=== PATIENT | female | born 1940 | race Caucasian/White ===

== ENCOUNTER 2020-08-10 04:08 | Inpatient (IN) | payer MEDICARE ==
[2020-08-10 04:45] LABS: #Basophils 0.1 thou/uL (0.0-0.2); #Lymphocytes 0.7 thou/uL (1.20-3.40); #Monocytes 0.5 thou/uL (0.11-0.59); #Neutrophils 8.8 thou/uL (1.40-6.50); %Basophils 0.9 % (0.0-1.0); %Eosinophils 0.2 % (0.0-10.0); %Lymphocytes 7.2 % (21.0-51.0); %Neutrophils 86.7 % (42.0-75.0); Hemoglobin 15.8 g/dL (12.0-16.0); Mean Corpuscular HGB CONC 33.6 g/dL (32.0-36.0); Mean Corpuscular Hemoglobin 31.7 pg (27.0-31.0); Mean Corpuscular Volume 94.4 fL (78.0-98.0); Mean Platelet Volume 7.6 fL (7.4-10.4); Platelet Count 346 thou/uL (130-400); RBC Distribution Width 12.4 % (11.5-14.5); White Blood Cell (WBC) Count 10.1 thou/uL (4.8-10.8)
[2020-08-10 05:07] LABS: ALT (SGPT) 28 U/L (8-55); AST (SGOT) 40 U/L (5-34); Albumin 3.6 g/dL (3.4-4.8); Alkaline Phosphatase 284 U/L (40-110); Anion Gap 19 mmol/L (10-20); BUN (Urea Nitrogen) 39 mg/dL (9.8-20.1); Bilirubin, Total 0.5 mg/dL (0.2-1.2); Calc. Creatinine Clearance 0 mL/min (70-130); Calcium 9.6 mg/dL (7.8-10.44); Carbon Dioxide 21 mmol/L (23-31); Chloride 104 mmol/L (98-107); Estimated GFR-MDRD 68; Glucose 141 mg/dL (83-110); Potassium 5.2 mmol/L (3.5-5.1); Protein, Total 6.6 g/dL (6.0-8.3); Sodium 139 mmol/L (136-145)
--- NOTE | 2020-08-10 05:44 | PDOC.FPRHP ---
- History of Present Illness Chief Complaint: shortness of breath History of Present Illness: 79-year-old female, history of COPD and stage IV lung cancer, presenting with shortness of breath from shelter. She reports the shortness of breath starteda couple of days ago is not associated with chest pain, and no worsened cough from baseline. She is typically on 2 L nasal cannula at the shelter, but they reported that she was requiring 6L NC to have saturations 98-99%. She further denies any fevers, abdominal pain, nausea, vomiting, loss of taste/smell, leg swelling. - Allergies/Adverse Reactions Allergies Allergy/AdvReac Type Severity Reaction Status Date / Time No Known Drug Allergies Allergy Verified 12/23/19 11:04 - Home Medications Medication Instructions Recorded Confirmed Type Aspirin [Aspir-Low] 81 mg PO DAILY 05/19/17 08/10/20 History Bimatoprost [Latisse] 1 drop TOP HS 05/19/17 08/10/20 History Citalopram Hydrobromide 20 mg PO DAILY 05/19/17 08/10/20 History [Citalopram HBr] Clopidogrel Bisulfate [Clopidogrel] 75 mg PO DAILY 05/19/17 08/10/20 History Fluticasone Propionate [Flonase 2 spray EA NARE DAILY 05/19/17 08/10/20 History Allergy Relief] Rosuvastatin Calcium 20 mg PO HS 05/19/17 08/10/20 History Levothyroxine Sodium 25 mcg PO DAILY-AC 06/26/20 08/10/20 History Timolol Maleate [Timolol Maleate 1 drop EA EYE BID 07/19/20 08/10/20 History 0.5% Ophth SolN] Amlodipine [Norvasc] 5 mg PO DAILY 08/10/20 08/10/20 History Ipratropium/Albuterol Sulfate 3 ml IH Q4HR PRN 08/10/20 08/10/20 History - History PMHx: COPD, Stage 4 Lung Cancer, Glaucoma, HLD, CAD, HTN, Throat Cancer PSHx: Throat surgery, cataract surgery FHx: none Social: smoked 1.5 ppd x 40 years quitting 20 years ago, no alcohol or drug use - Review of Systems General: denies: fever/chills, weight/appetite/sleep changes Eyes: denies: eye pain, vision changes ENT: denies: nasal congestion, rhinorrhea Respiratory: reports: cough, shortness of breath. denies: congestion Cardiovascular: denies: chest pain, palpitation, edema Gastrointestinal: denies: nausea, vomiting, diarrhea, constipation, abdominal pain Genitourinary: denies: incontinence, dysuria Skin: denies: rashes, lesions Musculoskeletal: denies: pain, tenderness Neurological: denies: numbness, syncope Psychological: reports: anxiety - Vital signs BP: 118/68, MAP: 84, Pulse: 91, Resp: 20, Temp: 98.2 (Oral), Pain: 0, O2 sat: 97 on (4L Oxygen), Wt: 55.9kg - Physical Exam Constitutional: NAD, awake, alert and oriented, other (cachectic) HEENT: normocephalic and atraumatic, EOMI, other (dry mucous membranes) Neck: FROM, trachea midline Heart: RRR, no murmurs/rubs/gallops, pulses present Lungs: no respiratory distress, other (rhonchi and crackles diffusely, worst at the base of the left lung) Abdomen: soft, non-tender, bowel sounds present Musculoskeletal: ROM grossly normal Neurological: no focal deficit, normal sensation Skin: no rash/lesions, no jaundice Heme/Lymphatic: no unusual bruising or bleeding, no purpura Psychiatric: normal mood and affect, good judgment and insight, intact recent and remote memory FMR H&P: Results - Labs Result Diagrams: 08/10/20 04:38 08/10/20 04:38 Lab results: WBC 10.1 thou/uL (4.8-10.8) 08/10/20 04:38 Hgb 15.8 g/dL (12.0-16.0) 08/10/20 04:38 Hct 47.2 % (36.0-47.0) H 08/10/20 04:38 MCV 94.4 fL (78.0-98.0) 08/10/20 04:38 Plt Count 346 thou/uL (130-400) 08/10/20 04:38 Neutrophils % 86.7 % (42.0-75.0) H 08/10/20 04:38 Sodium 139 mmol/L (136-145) 08/10/20 04:38 Potassium 5.2 mmol/L (3.5-5.1) H 08/10/20 04:38 Chloride 104 mmol/L (98-107) 08/10/20 04:38 Carbon Dioxide 21 mmol/L (23-31) L 08/10/20 04:38 BUN 39 mg/dL (9.8-20.1) H 08/10/20 04:38 Creatinine 0.81 mg/dL (0.6-1.1) 08/10/20 04:38 Glucose 141 mg/dL (83-110) H 08/10/20 04:38 Calcium 9.6 mg/dL (7.8-10.44) 08/10/20 04:38 Total Bilirubin 0.5 mg/dL (0.2-1.2) 08/10/20 04:38 AST 40 U/L (5-34) H 08/10/20 04:38 ALT 28 U/L (8-55) 08/10/20 04:38 Alkaline Phosphatase 284 U/L (40-110) H 08/10/20 04:38 Serum Total Protein 6.6 g/dL (6.0-8.3) 08/10/20 04:38 Albumin 3.6 g/dL (3.4-4.8) 08/10/20 04:38 - EKG Interpretation EKG: NSR FMR H&P: A/P - Plan Acute on Chronic Hypoxic Respiratory Failure 2/2 Large Left Pleural Effusion 2/2 Stage IV Adenocarcinoma Lung Cancer CXR Large left-sided Pleural Effusion - therapeutic thoracentesis today likely by our team or IR - patient will likely need stopcock and f/u with CV surg/onc - will schedule lovenox for 2100 today - mIVFs @ 100 - admit tele - continue to monitor respiratory status COPD - likely exacerbating the above - duonebs prn Hyperkalemia - will trend her levels HLD - continue home meds HTN - continue home meds Glaucoma - continue home meds Hypothyroidism - resume home meds Dispo: admit inpatient tele, LOS likely 1-2 days PCP: Susan Code status: DNAR FMR H&P: Upper Level - Plan Date/Time: 08/10/20 0541 IJah DO, have evaluated this patient and agree with findings/plan as outlined by agriculture internship resident. Pertinent changes/additions are listed here. This is an a79 yo female with a pmh Stage IV adenocarcinoma of the lung, recurrent pleural effusion, emphysema, CKD2, HLD, COPD, hx of laryngeal cancer, HTN, hypothyroidism, protein-calorie malnutrition who presents the ER with a cc of SOB. She states this has been progressive over the last 3-4 days and she is now requiring more O2 than her base line of 2L NC. She was recently diagnosed with lung cancer on 06/30/20 when she had a diagnostic thoracentesis. Since that time, she has had an additional therapeutic thoracentesis while awaiting outpt CV surgery appointments with Dr. Helm and oncology appointments with Dr. Rodriguez. On 06/27/20, she had 500ml drained from the left pleural effusion and on 07/21/20, she had 1.1L drained from that same side. Currently, she denies chest pain, fevers, chills, headaches, pressure ulcers, nausea, vomiting, diarrhea, or constipation. She denies current pain. Objective: BP 118/68, HR 91, RR 20, Temp 98.2, SpO2 90% on 2L NC, Wt. 55kg. This is a frail appearing woman with temporalis muscle wasting, mild respiratory distress, mild wheezing on the right lung, significantly diminished breath sounds on the left lung millan with dullness to percussion. Heart is RRR, abdomen is soft, BS+, pulses present in all 4 extremities. Labs significant for potassium of 5.2, alk phos of 284, and AST of 40. Hgb 15.8, CXR shows significant left sided pleural effusion, pending official read. Plan: Stage IV adenocarcinoma of the lung with associated pleural effusion and acute on chronic hypoxic respiratory failure: Will admit to medical and plan on therapeutic thoracentesis either by our team or IR. Pt likely needs a stopcock drain placed as to keep her out of the hospital long enough to follow up with CV surgery and oncology. Hyperkalemia, will trend her levels and treat if elevated. Her COPD is likely exacerbating the above, will add duonebs. Please see agriculture internship note for further information and management of chronic illnesses. Code: DNR Prophylaxis: Lovenox Family: None at bedside FLuids: LR 100ml/hr Diet: Regular Disposition: DC in 1-2 days PCP: Dr. Prihoda Addendum - Attending - Attending Attestation Date/Time: 08/10/20 8212 I personally evaluated the patient and discussed the management with Dr. Arroyo. I agree with the History, Examination, Assessment and Plan documented above with any addition or exceptions noted below - 79-year-old female with h/o COPD, CAD, HTN, HLD and recently diagnosed advanced lung cancer presenting with shortness of breath from shelter. She reports the shortness of breath started a couple of days ago is not associated with chest pain, and no worsened cough from baseline. She is typically on 2 L nasal cannula at the shelter, but they reported that she was requiring 6L NC to have saturations 98-99%. She further denies any fevers, abdominal pain, nausea, vomiting, loss of taste/smell, leg swelling. Has recently been hospitalized at [facility] (late Jun and mid July) for SOB and found to have large pleural effusion. From is fluid diagnosis of lung cancer was made. Has had 2 thoracenteses for recurrent malignant pleural effusion. PMH/PSH/Meds/SH reviewed and agree with resident's documentation. Afebrile VSS Exam repeated by me and agree with resident's findings. Labs: WBC=10.1, Qzb=420, BUN/Cr=39/0.81, CXR- large left sided pleural effusion. A/P: 1) Recurrent malignant effusion - will have IR perform thoracentesis. 2) Advanced lung cancer - patient reports that she saw oncology earlier this week and was told there were really no treatment options and she should consider hospice. Will have palliative care see patient to potential facilitate referral to hospice. 3) HTN- stable. .
[2020-08-10] MEDS ORDERED: Acetaminophen 325 MG TAB PO PRN (05:48)
[2020-08-10] MEDS ORDERED: HYDROcodone/Acetaminophen 5/325 mg Tablet PO PRN ×2 (07:53→07:54)
[2020-08-10] MEDS ORDERED: Ondansetron ODT 4 MG TAB PO PRN (07:53)
[2020-08-10] MEDS ORDERED: Ondansetron PF 4 MG/2 ML Vial IVP PRN (07:53)
[2020-08-10 08:54] VITALS: BMI 18.0
--- NOTE | 2020-08-10 09:11 | RAD ---
RADIOGRAPH CHEST 2 VIEW: DATE: 08/10/2020 TIME: 4:34 AM HISTORY: 79-year-old female with dyspnea COMPARISON: 07/19/2020 FINDINGS: Large left mediastinal mass again noted. Severe emphysematous changes of right lung. There has been i nterval increase in volume of the now large left pleural effusion, which opacifies the entire left lung except for a portion of the left upper lobe. No pneumothorax. No right-sided pleural effusion. IMPRESSION: 1) interval increase in volume of a now very large left pleural effusion. 2.) Severe centrilobular emphysema 3) malignant left sided mediastinal lymphadenopathy tumor mass
[2020-08-10] MEDS: Lactated Ringer's 1,000 ML IV SCH ×2 (09:39→18:18)
[2020-08-10 10:45] LABS: INR-International Normal Ratio 1.2; PTT 29.6 sec (22.9-36.1); Prothrombin Time 15.2 sec (12.0-14.7)
[2020-08-10] MEDS: Albuterol Sulfate 2.5 mg/3 ml Neb NEB PRN (13:01)
[2020-08-10] MEDS ORDERED: Amiodarone 450 MG, Admixture Fee 1 EACH in Dextrose 5% in Water 250 ML IVPB SCH (17:00)
[2020-08-10] MEDS ORDERED: Amiodarone 150 MG, Admixture Fee 1 EACH in Dextrose 5% in Water 100 ML IVPB SCH (17:00)
[2020-08-10] MEDS ORDERED: Diltiazem 125 MG in Sodium Chloride 0.9% 100 ML IVPB SCH ×2 (17:00→18:45)
--- NOTE | 2020-08-10 17:04 | PDOC.BPN ---
- Brief Progress Note Encounter Date: 08/10/20 Encounter Time: 17:00 Christina wade was called around 4 PM for pulse that was up to the 200s. At bedside, patient O2 sats were >90%. SBP was 110s, dropped to 80s on automatic cuff but remained 110s on manual cuff. Pulse was volatile from 90s to 200s. Patient was SOB but otherwise asymptomatic, denying chest pain or palpitations. Blood glucose was normal. 12 lead EKG showed Afib with RVR. 10 mg diltiazem was given, then a dilt drip was started at 5 mg/hr. CXR was stable, showing large L pleural effusion. TSH, mag and phos were ordered. Will continue to titrate dilt trip until A fib is rate controlled, as long as blood pressures allow. Plan for thoracentesis this evening.
--- NOTE | 2020-08-10 17:15 | RAD ---
RADIOGRAPH CHEST 1 VIEW: DATE: 08/10/2020 TIME: 5:03 PM HISTORY: 79-year-old female with dyspnea COMPARISON: 08/10/2020 4:34 AM FINDINGS: The only interval change is that there are now 2 defibrillation paddles overlie overlying the left ch est. IMPRESSION: 1) large left pleural effusion. 2) severe centrilobular emphysema. 3) left-sided mediastinal tumor mass. 4) no interval change.
[2020-08-10 17:22] LABS: Magnesium 2.4 mg/dL (1.6-2.6); Phosphorus 3.4 mg/dL (2.3-4.7)
[2020-08-10] MEDS ORDERED: Lactated Ringer's 1,000 ML IV SCH (17:59)
[2020-08-10 19:29] LABS: SARS-CoV-2 MS2 Positive; SARS-CoV-2 N Gene Negative; SARS-CoV-2 S Gene Negative; SARS-CoV-2 by NAA Not Detected (NotDetected); SARS-CoV-2 orf1ab Negative
--- NOTE | 2020-08-10 21:34 | RAD ---
XR Chest 1 View Portable HISTORY: Left pleural effusion. Thoracenteses COMPARISON: Earlier exam of 5:03 AM from the same date FINDINGS: There has been interval decrease in the size of the left pleural effusion. No pneumothorax is seen. Remainder the exam is otherwise stable.
[2020-08-10] MEDS: Enoxaparin Sodium 40 MG/0.4 ML SYRINGE SC SCH (21:57)
--- NOTE | 2020-08-11 06:02 | OP ---
DATE OF PROCEDURE: 08/10/2020 INDICATION: Left pleural effusion. PROCEDURE LABORATORY AIDE: Dr. Zaragoza/Dr. Emerson ATTENDING PHYSICIAN: Dr. Harding. IN ATTENDANCE: Yes. CONSENT: Consent was obtained from the patient prior to procedure. Indications, risks, and benefits were explained at length. PROCEDURE SUMMARY: A time-out was performed, and the chest x-ray was reviewed. The appropriate side was confirmed and marked. My hands were washed immediately prior to the procedure. I wore a surgical cap, mask with protective eye wear, sterile gown, and sterile gloves throughout the procedure. The patient was prepped and draped in a sterile manner using chlorhexidine scrub after the appropriate level was percussed and confirmed by ultrasound. 1% lidocaine was used to anesthetize the skin, subcutaneous tissue, superior aspect of the rib, periosteum and parietal pleura. A finder needle was then introduced over the superior aspect of the rib to locate the pleural fluid. Red-colored fluid was aspirated at a depth of approximately 2 cm. A 10 blade scalpel was used to edward the skin at the insertion site. The Uzdy-X-Lwvbsuov needle was then introduced through the skin incision into the pleural space using negative aspiration pressure, and a red colorimetric indicator to confirm appropriate positioning of the needle. The thoracentesis catheter was then threaded without difficulty. 1000 mL of red-colored fluid was removed without difficulty. The catheter was then removed. No immediate complications were noted during the procedure. A postprocedure chest x-ray is pending at the time of this note. ESTIMATED BLOOD LOSS: Less than 5 mL. Job ID: [id number]
--- NOTE | 2020-08-11 06:20 | PDOC.FM ---
- Subjective Subjective: Patient reports that she is feeling well this AM. Thoracentesis was performed last night with significant improvement of L sided pleural effusion. ~1L was drained off. She denies chest pain or difficulty breathing at this time. - Objective Vital Signs & Weight: Vital Signs (12 hours) Temp Pulse Resp BP Pulse Ox 08/11/20 03:27 97.2 F L 83 16 121/63 96 08/11/20 00:00 97.8 F 87 16 133/70 94 L 08/10/20 20:00 97.8 F 93 16 133/69 95 Weight Weight 47.673 kg Result Diagrams: 08/11/20 06:58 08/11/20 06:58 Phys Exam - Physical Examination Constitutional: NAD Respiratory: no wheezing, no rales, no rhonchi L side with decreased breath sounds in base Upper airway noise throughout Cardiovascular: no significant murmur, no rub Gastrointestinal: soft, non-tender, no distention, positive bowel sounds Dx/Plan - Plan Plan: Acute on Chronic Hypoxic Respiratory Failure 2/2 Large Left Pleural Effusion 2/2 Stage IV Adenocarcinoma Lung Cancer CXR Large left-sided Pleural Effusion - therapeutic thoracentesis performed 08/10 - patient will likely need stopcock and f/u with CV surg/onc - will schedule lovenox for 2100 today - mIVFs @ 100 - admit tele - continue to monitor respiratory status A fib with RVR - On Diltiazem drip - Wean drip, transition to PO meds - Consider cardiology consult COPD - likely exacerbating the above - duonebs prn Hyperkalemia - will trend her levels HLD - continue home meds HTN - continue home meds Glaucoma - continue home meds Hypothyroidism - resume home meds Dispo: admit inpatient tele, LOS likely 1-2 days PCP: Susan Code status: DNAR Addendum - Attending - Attending Attestation Date/Time: 08/11/20 6860 I personally evaluated the patient and discussed the management with Dr. Juan. I agree with the History, Examination, Assessment and Plan documented above with any addition or exceptions noted below.
[2020-08-11 07:16] LABS: #Lymphocytes 0.7 thou/uL (1.20-3.40); #Neutrophils 12.9 thou/uL (1.40-6.50); %Basophils 0.3 % (0.0-1.0); %Eosinophils 0.1 % (0.0-10.0); %Lymphocytes 4.7 % (21.0-51.0); %Neutrophils 87.9 % (42.0-75.0); Hemoglobin 16.3 g/dL (12.0-16.0); Mean Corpuscular HGB CONC 33.2 g/dL (32.0-36.0); Mean Corpuscular Hemoglobin 31.5 pg (27.0-31.0); Mean Corpuscular Volume 94.9 fL (78.0-98.0); Mean Platelet Volume 8.1 fL (7.4-10.4); Platelet Count 323 thou/uL (130-400); RBC Distribution Width 12.5 % (11.5-14.5); Red Blood Cell (RBC) Count 5.18 mill/uL (4.20-5.40); White Blood Cell (WBC) Count 14.7 thou/uL (4.8-10.8)
[2020-08-11 07:35] LABS: ALT (SGPT) 25 U/L (8-55); AST (SGOT) 36 U/L (5-34); Albumin 3.4 g/dL (3.4-4.8); Alkaline Phosphatase 237 U/L (40-110); Anion Gap 19 mmol/L (10-20); BUN (Urea Nitrogen) 46 mg/dL (9.8-20.1); Bilirubin, Total 0.5 mg/dL (0.2-1.2); Calc. Creatinine Clearance 37 mL/min (70-130); Calcium 9.7 mg/dL (7.8-10.44); Carbon Dioxide 21 mmol/L (23-31); Chloride 105 mmol/L (98-107); Estimated GFR-MDRD 60; Globulin 3.2 g/dL (2.4-3.5); Glucose 131 mg/dL (83-110); Potassium 4.7 mmol/L (3.5-5.1); Protein, Total 6.6 g/dL (6.0-8.3); Sodium 140 mmol/L (136-145)
[2020-08-11] MEDS ORDERED: Enoxaparin Sodium 40 MG/0.4 ML SYRINGE SC SCH (09:00)
[2020-08-11] MEDS ORDERED: Enoxaparin Sodium 60 MG/0.6 ML SYRINGE SC SCH (09:00)
[2020-08-11] MEDS ORDERED: Diltiazem HCl SR 60 mg Capsule PO SCH (09:45)
[2020-08-11] MEDS ORDERED: Lactated Ringer's 500 ML IV SCH (13:00)
[2020-08-11] MEDS: Albuterol Sulfate 2.5 mg/3 ml Neb NEB PRN ×2 (15:19→19:01)
[2020-08-12] MEDS ORDERED: Diltiazem HCl SR 60 mg Capsule PO SCH ×2 (02:30→09:00)
[2020-08-12 05:04] LABS: #Basophils 0.1 thou/uL (0.0-0.2); #Lymphocytes 0.8 thou/uL (1.20-3.40); %Basophils 0.3 % (0.0-1.0); %Eosinophils 0.3 % (0.0-10.0); %Lymphocytes 5.4 % (21.0-51.0); %Monocytes 6.6 % (0.0-10.0); %Neutrophils 87.3 % (42.0-75.0); Hemoglobin 13.9 g/dL (12.0-16.0); Mean Corpuscular HGB CONC 32.1 g/dL (32.0-36.0); Mean Corpuscular Hemoglobin 30.2 pg (27.0-31.0); Mean Platelet Volume 8.3 fL (7.4-10.4); Platelet Count 270 thou/uL (130-400); RBC Distribution Width 12.4 % (11.5-14.5); White Blood Cell (WBC) Count 14.9 thou/uL (4.8-10.8)
[2020-08-12 05:22] LABS: ALT (SGPT) 22 U/L (8-55); AST (SGOT) 33 U/L (5-34); Albumin 2.9 g/dL (3.4-4.8); Alkaline Phosphatase 208 U/L (40-110); Anion Gap 16 mmol/L (10-20); BUN (Urea Nitrogen) 55 mg/dL (9.8-20.1); Bilirubin, Total 0.4 mg/dL (0.2-1.2); Calc. Creatinine Clearance 30 mL/min (70-130); Calcium 9.4 mg/dL (7.8-10.44); Carbon Dioxide 24 mmol/L (23-31); Chloride 104 mmol/L (98-107); Estimated GFR-MDRD 47; Globulin 2.6 g/dL (2.4-3.5); Glucose 120 mg/dL (83-110); Potassium 4.2 mmol/L (3.5-5.1); Protein, Total 5.5 g/dL (6.0-8.3); Sodium 140 mmol/L (136-145)
--- NOTE | 2020-08-12 08:50 | PDOC.FM ---
- Subjective Subjective: Patient feeling well this AM, no acute concerns - Objective Vital Signs & Weight: Vital Signs (12 hours) Temp Pulse Resp BP Pulse Ox 08/12/20 04:00 97.1 F L 72 20 112/59 L 95 08/11/20 23:54 96.8 F L 87 20 89/69 L 96 Weight Admit Weight 47.673 kg Weight 47.673 kg I&O: 08/11/20 08/12/20 08/13/20 06:59 06:59 06:59 Intake Total 750 Output Total 2500 Balance -1750 Result Diagrams: 08/12/20 04:45 08/12/20 04:45 Phys Exam - Physical Examination Constitutional: NAD Respiratory: no wheezing Decreased breath sounds in LL lobe Dx/Plan - Plan Plan: Acute on Chronic Hypoxic Respiratory Failure 2/2 Large Left Pleural Effusion 2/2 Stage IV Adenocarcinoma Lung Cancer CXR Large left-sided Pleural Effusion - therapeutic thoracentesis performed 08/10 - patient will likely need stopcock and f/u with CV surg/onc - mIVFs @ 100 - admit tele - continue to monitor respiratory status A fib with RVR - Weaned off diltiazem drip, on PO diltiazem 120 mg QD - Consider cardiology consult if worsens GABE - Start mIVF LR 2/2 poor PO intake COPD - likely exacerbating the above - duonebs prn Hyperkalemia - will trend her levels HLD - continue home meds HTN - continue home meds Glaucoma - continue home meds Hypothyroidism - resume home meds Stage 4 lung cancer - Palliative consulted, appreciate recommendations - Discuss with Jennifer - Patient considering hospice care Dispo: admit inpatient tele, LOS likely 1-2 days PCP: Susan Code status: DNAR Addendum - Attending - Attending Attestation Date/Time: 08/12/20 1115 I personally evaluated the patient and discussed the management with Dr. Juan. I agree with the History, Examination, Assessment and Plan documented above with any addition or exceptions noted below. Patient denies concerns. Monitoring HR and working with her and family on terminal computer operator care plans for hospice versus further treatment/diagnostics of her malignancy.
[2020-08-12] MEDS ORDERED: Aspirin 81 mg Enteric Coated Tablet PO SCH (09:00)
[2020-08-12] MEDS ORDERED: Enoxaparin Sodium 40 MG/0.4 ML SYRINGE SC SCH ×2 (09:00→21:00)
--- NOTE | 2020-08-12 10:05 | RAD ---
FRONTAL RADIOGRAPH CHEST: Date: 08/12/2020 COMPARISON: 08/10/2020. HISTORY: Shortness of breath. FINDINGS: There is soft tissue density in the superior mediastinum superior to and lateral to the aortic knob s uggesting a stable mediastinal soft tissue mass. No pneumothorax is evident. There is pleural and par enchymal density in the left lung base suggesting nonspecific left lower lobe consolidation/collapse and left pleural fluid. Emphysematous changes are noted bilaterally. IMPRESSION: Mediastinal soft tissue mass. Pleural and parenchymal opacity in the left base. Findings are similar when compared to 08/10/2020. POS: [facility]
[2020-08-12] MEDS: Lactated Ringer's 1,000 ML IV SCH ×2 (10:40→16:50)
[2020-08-12] MEDS: Enoxaparin Sodium 40 MG/0.4 ML SYRINGE SC SCH (10:40)
--- NOTE | 2020-08-12 14:54 | PDOC.FMACP ---
Advance Care Planning - Problem (1) Palliative care encounter Status: Acute Code(s): Z51.5 - ENCOUNTER FOR PALLIATIVE CARE (2) Adenocarcinoma of lung, stage 4 Status: Acute Code(s): C34.90 - MALIGNANT NEOPLASM OF UNSP PART OF UNSP BRONCHUS OR LUNG (3) COPD (chronic obstructive pulmonary disease) Status: Chronic (4) Pleural effusion, malignant Status: Chronic Code(s): J91.0 - MALIGNANT PLEURAL EFFUSION - Note Participants: patient, palliative care Summary: Palliative Care has addressed Advanced Care Planning with patient and family. The diagnosis, prognosis and goals of care were discussed. Appropriate forms and documentation to accomplish the goals of care were discussed. MPOA and Directive to physician completed, original and copies are given to the patient as well as copies for the chart and medical records. Ms. Oropeza has elected to transition to the home setting with hospice to manage symptoms related to terminal condition. Hopeful for placement of plurex cath to manage symptoms of recurrent effusion. Emotional support and Therapeutic listening. Please refer to Palliative Care notes in note section. Time Spent (mins): 40
[2020-08-12] MEDS: Diltiazem HCl SR 60 mg Capsule PO SCH (15:03)
[2020-08-12] MEDS ORDERED: Lactated Ringer's 500 ML IV SCH (17:00)
[2020-08-12] MEDS ORDERED: BIMATOPROST TOP SCH (21:00)
[2020-08-12] MEDS: Timolol 0.5% Ophth Soln 5 ml Bottle EA EYE SCH (22:21)
[2020-08-12] MEDS: Rosuvastatin 10 MG TAB PO SCH (22:21)
[2020-08-13] MEDS: Lactated Ringer's 1,000 ML IV SCH ×3 (02:40→22:22)
[2020-08-13] MEDS: Levothyroxine Sodium 25 MCG TAB PO SCH (05:26)
[2020-08-13 05:54] LABS: #Basophils 0.1 thou/uL (0.0-0.2); #Eosinphils 0.3 thou/uL (0.0-0.7); #Lymphocytes 0.8 thou/uL (1.20-3.40); #Monocytes 0.8 thou/uL (0.11-0.59); #Neutrophils 11.5 thou/uL (1.40-6.50); %Basophils 0.5 % (0.0-1.0); %Eosinophils 2.6 % (0.0-10.0); %Monocytes 6.1 % (0.0-10.0); %Neutrophils 84.9 % (42.0-75.0); Hemoglobin 14.4 g/dL (12.0-16.0); Mean Corpuscular HGB CONC 31.7 g/dL (32.0-36.0); Mean Corpuscular Hemoglobin 30.7 pg (27.0-31.0); Mean Corpuscular Volume 96.8 fL (78.0-98.0); Mean Platelet Volume 8.2 fL (7.4-10.4); Platelet Count 258 thou/uL (130-400); RBC Distribution Width 12.5 % (11.5-14.5); Red Blood Cell (RBC) Count 4.69 mill/uL (4.20-5.40); White Blood Cell (WBC) Count 13.6 thou/uL (4.8-10.8)
[2020-08-13 06:01] LABS: ALT (SGPT) 25 U/L (8-55); AST (SGOT) 54 U/L (5-34); Albumin 2.6 g/dL (3.4-4.8); Alkaline Phosphatase 239 U/L (40-110); Anion Gap 13 mmol/L (10-20); BUN (Urea Nitrogen) 36 mg/dL (9.8-20.1); Bilirubin, Total 0.5 mg/dL (0.2-1.2); Calc. Creatinine Clearance 45 mL/min (70-130); Calcium 8.9 mg/dL (7.8-10.44); Carbon Dioxide 23 mmol/L (23-31); Chloride 107 mmol/L (98-107); Estimated GFR-MDRD 75; Globulin 2.6 g/dL (2.4-3.5); Glucose 79 mg/dL (83-110); Protein, Total 5.2 g/dL (6.0-8.3); Sodium 139 mmol/L (136-145)
[2020-08-13] MEDS: Citalopram 10 MG TAB PO SCH (08:19)
[2020-08-13] MEDS: Timolol 0.5% Ophth Soln 5 ml Bottle EA EYE SCH ×2 (08:20→22:22)
--- NOTE | 2020-08-13 08:48 | PDOC.FM ---
- Subjective Subjective: No acute concerns, patient repeatedly saying "I just want to ". Denies CP, increased difficulty breathing, and palpitations - Objective Vital Signs & Weight: Vital Signs (12 hours) Temp Pulse Resp BP BP Pulse Ox 08/13/20 08:20 104 H 08/13/20 08:00 97.5 F L 104 H 24 H 76/53 L 93 L 08/13/20 04:00 97.4 F L 81 22 H 114/78 94 L 08/12/20 22:27 26 H 08/12/20 22:21 77 94/64 Weight Admit Weight 47.673 kg Weight 47.673 kg I&O: 08/12/20 08/13/20 08/14/20 06:59 06:59 06:59 Intake Total 750 2631 Output Total 2500 1275 Balance -1750 1356 Result Diagrams: 08/13/20 05:25 08/13/20 05:25 Phys Exam - Physical Examination Constitutional: NAD Cachectic Respiratory: no wheezing, no rales Decreased breath soudns on L side Cardiovascular: no significant murmur, no rub Irregularly irregular Gastrointestinal: soft, non-tender, no distention, positive bowel sounds Dx/Plan - Plan Plan: Acute on Chronic Hypoxic Respiratory Failure 2/2 Large Left Pleural Effusion 2/2 Stage IV Adenocarcinoma Lung Cancer CXR Large left-sided Pleural Effusion - therapeutic thoracentesis performed 08/10 - patient Denies PleurX procedure - mIVFs @ 100 - admit tele - continue to monitor respiratory status A fib with RVR - Weaned off diltiazem drip, on PO diltiazem 120 mg QD - Back in A fib this AM, discussed digoxin given low BP, however, patient repeatedly saying "I just want to " GABE - mIVF LR 2/2 poor PO intake COPD - likely exacerbating the above - duonebs prn Hyperkalemia - will trend her levels HLD - continue home meds HTN - continue home meds Glaucoma - continue home meds Hypothyroidism - resume home meds Stage 4 lung cancer - Palliative consulted, appreciate recommendations - Discuss with Jennifer - Patient considering hospice care Dispo: admit inpatient tele, LOS likely 1-2 days PCP: Susan Code status: FUENTESR Addendum - Attending - Attending Attestation Date/Time: 08/13/20 1056 I personally evaluated the patient and discussed the management with Dr. Juan. I agree with the History, Examination, Assessment and Plan documented above with any addition or exceptions noted below. Patient desiring to go home with hospice care. She is currently having some runs of RVR associated with her Afib, but she is declining medical intervention, including IV medications to help with rate control. Palliative notified.
[2020-08-13] MEDS ORDERED: Clopidogrel Bisulfate 75 MG TAB PO SCH (09:00)
[2020-08-13] MEDS: Diltiazem HCl SR 60 mg Capsule PO SCH (09:06)
--- NOTE | 2020-08-13 09:38 | PDOC.BPN ---
- Brief Progress Note Patient in A fib with RVR this AM. Discussed option of starting Digoxin to control HR, would not do diltiazem or other rate control given hypotension. Patient repeatedly said "I just want to ". Also discussed option of Pleurex and other options for L sided pleural effusion. Patient responded with "Just let me ". Will hold off on PleurX and antiarrhythmics/rate control at this time.
[2020-08-13] MEDS: Fluticasone Propionate Nasal Spray 16 gm Bottle NASAL SCH (09:47)
--- NOTE | 2020-08-13 10:02 | PDOC.PALPN ---
Palliative Progress Note - Subjective Sleeping, but arousable. Poor appitite. States she "wants to go home", requesting hospice. Poor review of systems as patient disengaged. Tachypnea - Objective Vital Signs: Vital Signs - Most Recent Temp Pulse Resp BP Pulse Ox 97.5 F L 104 H 24 H 76/53 L 93 L 08/13/20 08:00 08/13/20 08:20 08/13/20 08:00 08/13/20 08:00 08/13/20 08:00 - Physical Exam Constitutional: ill appearing, mild distress HEENT: EOMI, moist MMs, sclera anicteric Respiratory: no wheezing, diminished lung sound, tachypnea Cardiovascular: irregular Gastrointestinal: soft, non-tender, positive bowel sounds Genitourinary: daly catheter Musculoskeletal: diffuse muscle atrophy Neurology: moves all 4 limbs, no focal deficits Skin: cap refill <2 seconds, bruising, fragile Psychiatric: A&O x 3, flat affect - Assessment (1) Palliative care encounter Code(s): Z51.5 - ENCOUNTER FOR PALLIATIVE CARE Status: Acute (2) Adenocarcinoma of lung, stage 4 Code(s): C34.90 - MALIGNANT NEOPLASM OF UNSP PART OF UNSP BRONCHUS OR LUNG Status: Acute (3) COPD (chronic obstructive pulmonary disease) Status: Chronic (4) Pleural effusion, malignant Code(s): J91.0 - MALIGNANT PLEURAL EFFUSION Status: Chronic - Plan Plan: Visited with patient, requesting to transition to Hospice and return to the home setting as soon as possible. Confirmed with Mora surrogate decision maker. Requesting Hospice [facility] for evaluation. Hopeful for transition to home setting, 24 hour care arranged when the patient transitions home. Communicated with Dr aMriah KWON [[id number]] minutes spent on this encounter with >50% of the time in counseling and coordination of care. - ROS Constitutional: loss appetite, weakness ENT: other (Denies congestion or throat irritation) Respiratory: shortness of breath Cardiology: palpitations
[2020-08-13] MEDS: Rosuvastatin 10 MG TAB PO SCH (22:22)
[2020-08-14 05:16] LABS: #Basophils 0.1 thou/uL (0.0-0.2); #Eosinphils 0.2 thou/uL (0.0-0.7); #Lymphocytes 0.8 thou/uL (1.20-3.40); #Monocytes 0.8 thou/uL (0.11-0.59); #Neutrophils 13.3 thou/uL (1.40-6.50); %Basophils 0.5 % (0.0-1.0); %Eosinophils 1.4 % (0.0-10.0); %Lymphocytes 5.2 % (21.0-51.0); %Monocytes 5.6 % (0.0-10.0); %Neutrophils 87.4 % (42.0-75.0); Hemoglobin 15.9 g/dL (12.0-16.0); Mean Corpuscular HGB CONC 31.4 g/dL (32.0-36.0); Mean Corpuscular Hemoglobin 30.2 pg (27.0-31.0); Mean Corpuscular Volume 96.4 fL (78.0-98.0); Mean Platelet Volume 8.6 fL (7.4-10.4); Platelet Count 274 thou/uL (130-400); RBC Distribution Width 12.5 % (11.5-14.5); Red Blood Cell (RBC) Count 5.27 mill/uL (4.20-5.40); White Blood Cell (WBC) Count 15.2 thou/uL (4.8-10.8)
[2020-08-14 05:43] LABS: ALT (SGPT) 30 U/L (8-55); AST (SGOT) 58 U/L (5-34); Albumin 2.5 g/dL (3.4-4.8); Alkaline Phosphatase 344 U/L (40-110); Anion Gap 16 mmol/L (10-20); BUN (Urea Nitrogen) 35 mg/dL (9.8-20.1); Bilirubin, Total 0.5 mg/dL (0.2-1.2); Calc. Creatinine Clearance 46 mL/min (70-130); Calcium 8.8 mg/dL (7.8-10.44); Carbon Dioxide 18 mmol/L (23-31); Chloride 107 mmol/L (98-107); Estimated GFR-MDRD 78; Globulin 2.7 g/dL (2.4-3.5); Glucose 64 mg/dL (83-110); Potassium 4.3 mmol/L (3.5-5.1); Protein, Total 5.2 g/dL (6.0-8.3); Sodium 137 mmol/L (136-145)
[2020-08-14] MEDS: Levothyroxine Sodium 25 MCG TAB PO SCH ×2 (06:42→06:47)
[2020-08-14 07:53] VITALS: TEMP 97.5
--- NOTE | 2020-08-14 08:23 | PDOC.FM ---
- Subjective Subjective: Patient is doing well this AM, reports that breathing is stable from yesterday. - Objective Vital Signs & Weight: Vital Signs (12 hours) Temp Pulse Resp BP Pulse Ox 08/14/20 07:49 97.5 F L 87 24 H 114/83 95 08/14/20 05:08 95 08/14/20 04:00 97.2 F L 78 30 H 102/74 95 08/14/20 00:00 97.4 F L 72 20 93/63 95 Weight Admit Weight 47.673 kg Weight 47.673 kg I&O: 08/13/20 08/14/20 08/15/20 06:59 06:59 06:59 Intake Total 2631 1381 1300 Output Total 1275 350 300 Balance 1356 1031 1000 Result Diagrams: 08/14/20 04:46 08/14/20 04:46 Phys Exam - Physical Examination Constitutional: NAD Respiratory: no wheezing, no rales L sided decreased breath sounds Cardiovascular: RRR, no significant murmur, no rub Gastrointestinal: soft, non-tender, no distention Dx/Plan - Plan Plan: Acute on Chronic Hypoxic Respiratory Failure 2/2 Large Left Pleural Effusion 2/2 Stage IV Adenocarcinoma Lung Cancer CXR Large left-sided Pleural Effusion - therapeutic thoracentesis performed 08/10 - patient Denies PleurX procedure - mIVFs @ 100 - admit tele - continue to monitor respiratory status A fib with RVR - Weaned off diltiazem drip, on PO diltiazem 120 mg QD - Back in NSR this AM GABE - mIVF LR 2/2 poor PO intake COPD - likely exacerbating the above - duonebs prn Hyperkalemia - will trend her levels HLD - continue home meds HTN - continue home meds Glaucoma - continue home meds Hypothyroidism - resume home meds Stage 4 lung cancer - Palliative consulted, appreciate recommendations - Discuss with Jennifer - Patient considering hospice care Dispo: DC today to home hospice PCP: Susan Code status: LORI Addendum - Attending - Attending Attestation Date/Time: 08/14/20 1429 I personally evaluated the patient and discussed the management with Dr. Juan. I agree with the History, Examination, Assessment and Plan documented above with any addition or exceptions noted below. Patient will be discharged today on hospice services.
[2020-08-14] MEDS: Citalopram 10 MG TAB PO SCH (08:46)
[2020-08-14] MEDS: Fluticasone Propionate Nasal Spray 16 gm Bottle NASAL SCH (08:46)
[2020-08-14] MEDS: Timolol 0.5% Ophth Soln 5 ml Bottle EA EYE SCH (08:47)
[2020-08-14] MEDS ORDERED: Lorazepam 2 MG/ML VIAL SLOW IVP PRN (08:48)
--- NOTE | 2020-08-14 08:49 | PDOC.PALPN ---
Palliative Progress Note - Subjective Sleepy, but awakens. Anxious earlier, continues with poor appetite and requesting to go home. - Objective Vital Signs: Vital Signs - Most Recent Temp Pulse Resp BP Pulse Ox 97.5 F L 87 24 H 114/83 95 08/14/20 07:49 08/14/20 08:47 08/14/20 07:49 08/14/20 07:49 08/14/20 07:49 - Physical Exam Constitutional: cachectic, ill appearing HEENT: EOMI, moist MMs, sclera anicteric Respiratory: diminished lung sound Cardiovascular: RRR Gastrointestinal: soft, non-tender, positive bowel sounds Genitourinary: daly catheter Musculoskeletal: no cyanosis, no clubbing, diffuse muscle atrophy Neurology: no focal deficits Skin: cap refill <2 seconds, bruising, fragile Psychiatric: A&O x 3, flat affect - Assessment (1) Palliative care encounter Code(s): Z51.5 - ENCOUNTER FOR PALLIATIVE CARE Status: Acute (2) Adenocarcinoma of lung, stage 4 Code(s): C34.90 - MALIGNANT NEOPLASM OF UNSP PART OF UNSP BRONCHUS OR LUNG Status: Acute (3) COPD (chronic obstructive pulmonary disease) Status: Chronic (4) Pleural effusion, malignant Code(s): J91.0 - MALIGNANT PLEURAL EFFUSION Status: Chronic - Plan Plan: *Reviewed medications, added Ativan secondary to anxiety when shortness of breath increases. *Reviewed home plan. Discussed with patient MPOA. Hopeful to transition to home setting today. Emotional support, short life review. Communicated with attending physician, Dr Juan [[id number]] minutes spent on this encounter with >50% of the time in counseling and coordination of care. - ROS Constitutional: alert, loss appetite, weakness Respiratory: shortness of breath with extertion Cardiology: other (Negative for chest pain or palpitations) Gastrointestinal: other (Negative for diarrhea, nausea)
[2020-08-14] MEDS ORDERED: Scopolamine 1.5 mg/72 hour Patch TD SCH (09:00)
[2020-08-14] MEDS: Lactated Ringer's 1,000 ML IV SCH (09:16)
[2020-08-14 15:38] VITALS: BP 137/83
--- NOTE | 2020-08-15 11:59 | DIS ---
DATE OF ADMISSION: 08/10/2020 DATE OF DISCHARGE: 08/14/2020 ADMITTING ATTENDING: Sylvia Fisher MD DISCHARGE ATTENDING: Chris Germain MD RESIDENT: Jose Juan MD PROCEDURES: The patient had a therapeutic thoracentesis done on 08/10/20, draining approximately 1 L of blood-tinged fluid. Chest x-ray on admission showing left-sided pleural effusion encompassing approximately 3/4 of the left lung. PRIMARY DIAGNOSIS: Acute on chronic hypoxic respiratory failure due to left pleural effusion due to stage IV adenocarcinoma lung cancer. SECONDARY DIAGNOSES: Atrial fibrillation, chronic obstructive pulmonary disease, hyperkalemia, hyperlipidemia, hypertension, glaucoma, hypothyroidism. DISCHARGE MEDICATIONS: 1. Flonase 2 sprays each nostril daily. 2. Bimatoprost one drop topical q.h.s. 3. Citalopram 20 mg p.o. daily. 4. Rosuvastatin 20 mg p.o. q.h.s. 5. Plavix 75 mg p.o. daily. 6. Aspirin 81 mg p.o. daily. 7. Synthroid 25 mcg p.o. daily. 8. Timolol maleate one drop each eye b.i.d. 9. DuoNeb 3 mL inhaled q.4 hours p.r.n. 10. Tylenol 650 mg p.o. q.4 hours p.r.n. 11. Scopolamine transdermal patch 1.5 mg q.3 days. DISCONTINUED MEDICATIONS: Amlodipine 5 mg p.o. daily. HISTORY OF PRESENT ILLNESS/HOSPITAL COURSE: The patient is an 79-year-old female with past medical history significant for stage IV adenocarcinoma of the lung. The patient came in with shortness of breath and increase in O2 requirement from baseline 2 L to 4 L. Chest x-ray shows large left pleural effusion. On 08/10, therapeutic thoracentesis was performed as above. The night after thoracentesis, the patient went into AFib with RVR and was placed on diltiazem drip. Diltiazem drip was weaned and the patient was in normal sinus rhythm. The patient went back in AFib with RVR and blood pressure would not tolerate diltiazem p.o. or diltiazem drip. At that point, we had a discussion with the patient as to using other medications to get the patient's heart rhythm into normal sinus rhythm and the patient declined medications. Palliative Care was consulted and had goals of care discussion with the patient and was decided between the patient; a friend, Mora; and [id number] that the patient will be placed on hospice. We had a discussion with the patient about placing a PleurX catheter for hospice to be able to drain recurring pleural effusions. However, the patient also declined this procedure. The patient was discharged to hospice in stable condition. DISPOSITION: Stable. DISCHARGE INSTRUCTIONS: 1. Location: Home on hospice. 2. Diet: Regular, as tolerated. 3. Activity: As tolerated. 4. Followup: Follow up with hospice providers; PCP, eun Guaman Job ID: [id number]
--- NOTE | 2020-08-17 20:58 | EKG ---
Test Reason : Blood Pressure : / mmHG Vent. Rate : 155 BPM Atrial Rate : 182 BPM P-R Int : 000 ms QRS Dur : 084 ms QT Int : 274 ms P-R-T Axes : 000 018 162 degrees QTc Int : 440 ms Atrial fibrillation with rapid ventricular response Minimal voltage criteria for LVH, may be normal variant T wave abnormality, consider inferior ischemia or digitalis effect Abnormal ECG No previous ECGs available Confirmed by Feli EID ([id number]) on 08/17/2020 8:58:25 PM Referred By: INÉS Confirmed By:Feli EID
--- NOTE | 2020-08-23 16:15 | EKG ---
Test Reason : Blood Pressure : / mmHG Vent. Rate : 091 BPM Atrial Rate : 091 BPM P-R Int : 114 ms QRS Dur : 076 ms QT Int : 374 ms P-R-T Axes : 064 034 050 degrees QTc Int : 460 ms Normal sinus rhythm Septal infarct , age undetermined Abnormal ECG Confirmed by JAYLA BROTHERS M.D. ([id number]), assistant production editor CORETTA SOLANO ([id number]) on 08/23/2020 4:15:35 PM Referred By: Confirmed By:JAYLA BROTHERS M.D.
== END 2020-08-14 15:54 | disposition hospice, home (50) | DRG 180 ==
LOC: ERS 04:08 → 2SE 05:24
PROVIDERS: ADMIT Family Medicine; ATTEND Family Medicine
PROC: 0W9B3ZZ Drainage of Left Pleural Cavity, Percutaneous Approach (ICD-10-PCS; principal; 2020-08-10)
DX: C34.90 Malignant neoplasm of unspecified part of unspecified bronchus or lung (principal); J96.21 Acute and chronic respiratory failure with hypoxia; J91.0 Malignant pleural effusion; J44.1 Chronic obstructive pulmonary disease with (acute) exacerbation; E46 Unspecified protein-calorie malnutrition; N17.9 Acute kidney failure, unspecified; Z68.1 Body mass index [BMI] 19.9 or less, adult; Z66 Do not resuscitate; Z51.5 Encounter for palliative care; Z20.828 Contact with and (suspected) exposure to other viral communicable diseases; H40.9 Unspecified glaucoma; I25.10 Atherosclerotic heart disease of native coronary artery without angina pectoris; E78.5 Hyperlipidemia, unspecified; E78.00 Pure hypercholesterolemia, unspecified; I12.9 Hypertensive chronic kidney disease with stage 1 through stage 4 chronic kidney disease, or unspecified chronic kidney disease; N18.2 Chronic kidney disease, stage 2 (mild); I48.91 Unspecified atrial fibrillation; Z79.899 Other long term (current) drug therapy; Z79.890 Hormone replacement therapy; Z79.82 Long term (current) use of aspirin; Z79.51 Long term (current) use of inhaled steroids; Z87.891 Personal history of nicotine dependence
CPT/HCPCS: 36415; 36416; 71045; 71046; 80053; 83735; 84100; 84443; 84484; 85025; 85610; 85730; 87635; 93005; 93010; 94640; J1650; J3490; J7611; J7620; U0003